=== PATIENT | female | born 1950 | race Caucasian/White ===

== ENCOUNTER 2023-03-10 12:53 | Outpatient (REF) | payer MEDICARE, MEDICAID, SELFPAY ==
[2023-03-10 17:13] LABS: HCT 36.7 % (36.0-46.0); HGB 11.7 g/dL (11.2-15.7); MCH 26.3 pg (27.0-33.0); MCHC 31.9 % (32.0-36.0); MCV 83 fL (80-95); MPV 11.5 fL (8.0-11.0); Platelet Count 215 10^3/uL (130-400); RBC 4.45 10^6/uL (3.93-5.22); RDW 14.3 % (11.7-14.6); RDW-SD 42.5 fL; WBC 6.26 10^3/uL (4.4-10.8)
[2023-03-10 18:03] LABS: Ferritin 10 ng/mL (8-252)
[2023-03-10 18:04] LABS: Iron 42 ug/dL (50-170); Total Iron Binding Capacity 456 ug/dL (250-450); Transferrin Sat 9 % (15-50)
[2023-03-10 18:06] LABS: Vitamin D 25 Total 28.3 ng/mL (30-100)
[2023-03-10 19:01] LABS: Vitamin B12 403 pg/mL (193-986)
[2023-03-12 09:06] LABS: Transferrin 388 mg/dL (201-352)
== END 2023-03-10 12:54 | disposition home or self-care (01) ==
LOC: NCHCN 12:53
PROVIDERS: PCP Internal Medicine; Visit Provider Internal Medicine
DX: D64.9 Anemia, unspecified (principal); M85.88 Other specified disorders of bone density and structure, other site
CPT/HCPCS: 82306; 85027; 82607; 82728; 83540; 83550; 84466

== ENCOUNTER 2023-09-06 16:50 | Outpatient (REF) | payer MEDICARE, MEDICAID, SELFPAY ==
[2023-09-06 22:18] LABS: HCT 34.6 % (36.0-46.0); MCH 26.1 pg (27.0-33.0); MCHC 31.8 % (32.0-36.0); MCV 82 fL (80-95); MPV 11.9 fL (8.0-11.0); Platelet Count 271 10^3/uL (130-400); RBC 4.22 10^6/uL (3.93-5.22); RDW 13.8 % (11.7-14.6); RDW-SD 41.1 fL; WBC 4.91 10^3/uL (4.4-10.8)
[2023-09-06 22:43] LABS: Hemoglobin A1C 6.3 % (<5.7)
[2023-09-06 22:47] LABS: Ferritin 11 ng/mL (8-252)
[2023-09-06 23:19] LABS: Vitamin D 25 Total 18.5 ng/mL (30-100)
== END 2023-09-06 16:51 | disposition home or self-care (01) ==
LOC: NCHCN 16:50
PROVIDERS: PCP Internal Medicine; Visit Provider Internal Medicine
DX: R73.03 Prediabetes (principal); D50.0 Iron deficiency anemia secondary to blood loss (chronic); E55.9 Vitamin D deficiency, unspecified
CPT/HCPCS: 82306; 85027; 82728; 83036

== ENCOUNTER 2023-12-22 13:40 | Outpatient (REF) | payer MEDICARE, MEDICAID, SELFPAY ==
[2023-12-22 16:01] LABS: HCT 45.6 % (36.0-46.0); HGB 14.5 g/dL (11.2-15.7); MCH 26.1 pg (27.0-33.0); MCHC 31.8 % (32.0-36.0); MCV 82 fL (80-95); MPV 11.1 fL (8.0-11.0); Platelet Count 229 10^3/uL (130-400); RBC 5.55 10^6/uL (3.93-5.22); RDW 15.6 % (11.7-14.6); RDW-SD 46.4 fL; WBC 6.07 10^3/uL (4.4-10.8)
[2023-12-22 16:51] LABS: Ferritin 27 ng/mL (8-252); Hemoglobin A1C 6.4 % (<5.7)
== END 2023-12-22 13:41 | disposition home or self-care (01) ==
LOC: NCHCN 13:40
PROVIDERS: PCP Internal Medicine; Visit Provider Internal Medicine
DX: D50.0 Iron deficiency anemia secondary to blood loss (chronic); E55.9 Vitamin D deficiency, unspecified
CPT/HCPCS: 82306; 85027; 82728; 83036

== ENCOUNTER 2024-06-21 11:50 | Outpatient (REF) | payer MEDICARE, MEDICAID, SELFPAY ==
[2024-06-21 14:48] LABS: HCT 38.2 % (36.0-46.0); HGB 11.9 g/dL (11.2-15.7); MCH 24.9 pg (27.0-33.0); MCHC 31.2 % (32.0-36.0); MCV 80 fL (80-95); MPV 11.6 fL (8.0-11.0); Platelet Count 295 10^3/uL (130-400); RBC 4.78 10^6/uL (3.93-5.22); RDW 15.5 % (11.7-14.6); RDW-SD 44.3 fL; WBC 8.51 10^3/uL (4.4-10.8)
[2024-06-21 15:09] LABS: Iron 56 ug/dL (50-170); Total Iron Binding Capacity 540 ug/dL (250-450); Transferrin Sat 10 % (15-50)
[2024-06-21 15:23] LABS: Anion Gap 9.1 mmol/L (3-11); BUN 18 mg/dL (7-18); CO2 29.9 mmol/L (21.0-32.0); CREATININE 0.9 mg/dL (0.55-1.02); Calcium 9.9 mg/dL (8.5-10.1); Chloride 101 mmol/L (98-107); Estimated GFR 67.92 (mL/min/1.73m2); Ferritin 11 ng/mL (8-252); Glucose 255 mg/dL (74-106); Potassium 4.5 mmol/L (3.5-5.1); Sodium 140 mmol/L (136-145); Vitamin D 25 Total 26.5 ng/mL (30-100)
== END 2024-06-21 11:51 | disposition home or self-care (01) ==
LOC: NCHCN 11:50
PROVIDERS: PCP Internal Medicine; Visit Provider Internal Medicine
DX: D50.0 Iron deficiency anemia secondary to blood loss (chronic) (principal); E55.9 Vitamin D deficiency, unspecified
CPT/HCPCS: 80048; 82306; 85027; 82728; 83540; 83550

== ENCOUNTER 2024-09-22 12:44 | Outpatient (REF) | payer MEDICARE, MEDICAID, SELFPAY ==
[2024-09-22 14:32] LABS: HCT 38.1 % (36.0-46.0); HGB 12.7 g/dL (11.2-15.7); MCH 27.1 pg (27.0-33.0); MCHC 33.3 % (32.0-36.0); MCV 81 fL (80-95); MPV 11.3 fL (8.0-11.0); Platelet Count 235 10^3/uL (130-400); RBC 4.69 10^6/uL (3.93-5.22); RDW 16.2 % (11.7-14.6); RDW-SD 47.7 fL; WBC 5.47 10^3/uL (4.4-10.8)
[2024-09-22 15:03] LABS: Ferritin 35 ng/mL (8-252); Vitamin D 25 Total 26 ng/mL (30-100)
[2024-09-22 16:18] LABS: COMMENT (LAB VIEW ONLY) 126.76 mg/dL; Microalb ug/mg Crea 46.9 ug/mg Cr
== END 2024-09-22 12:45 | disposition home or self-care (01) ==
LOC: NCHCN 12:44
PROVIDERS: PCP Internal Medicine; Visit Provider Internal Medicine
DX: D50.0 Iron deficiency anemia secondary to blood loss (chronic) (principal); E55.9 Vitamin D deficiency, unspecified
CPT/HCPCS: 82306; 85027; 82043; 82570; 82728

== ENCOUNTER 2025-04-19 15:13 | Outpatient (REF) | payer MEDICARE, MEDICAID, SELFPAY ==
[2025-04-19 21:02] LABS: HCT 33.8 % (36.0-46.0); HGB 10.6 g/dL (11.2-15.7); MCH 24.7 pg (27.0-33.0); MCHC 31.4 % (32.0-36.0); MCV 79 fL (80-95); MPV 11.0 fL (8.0-11.0); Platelet Count 271 10^3/uL (130-400); RBC 4.29 10^6/uL (3.93-5.22); RDW 14.7 % (11.7-14.6); RDW-SD 42.1 fL; WBC 5.86 10^3/uL (4.4-10.8)
[2025-04-19 21:18] LABS: Iron 32 ug/dL (50-170); Total Iron Binding Capacity 536 ug/dL (250-450); Transferrin Sat 6 % (15-50)
[2025-04-19 21:21] LABS: Hemoglobin A1C 6.1 % (<5.7)
[2025-04-19 21:44] LABS: ALT 26 U/L (14-59); AST 24 U/L (15-37); Albumin 3.9 g/dL (3.4-5.0); Alkaline Phosphatase 79 U/L (46-116); Anion Gap 9.1 mmol/L (3-11); BUN 13 mg/dL (7-18); Bilirubin, Total 0.9 mg/dL (0.2-1.0); CO2 27.9 mmol/L (21.0-32.0); Calcium 8.7 mg/dL (8.5-10.1); Calculated LDL 85 mg/dL (<100); Chloride 103 mmol/L (98-107); Cholesterol 164 mg/dL (<200); Estimated GFR 94.72 (mL/min/1.73m2); Ferritin 6 ng/mL (8-252); Glucose 109 mg/dL (74-106); HDL Cholesterol 56 mg/dL (>or=50); Potassium 3.6 mmol/L (3.5-5.1); Sodium 140 mmol/L (136-145); Total Protein 7.3 g/dL (6.4-8.2); Triglyceride 116 mg/dL (<150); Vitamin D 25 Total 36 ng/mL (30-100)
== END 2025-04-19 15:14 | disposition home or self-care (01) ==
LOC: NCHCN 15:13
PROVIDERS: PCP Internal Medicine; Visit Provider Internal Medicine
DX: D50.0 Iron deficiency anemia secondary to blood loss (chronic) (principal); E11.9 Type 2 diabetes mellitus without complications; E55.9 Vitamin D deficiency, unspecified
CPT/HCPCS: 80053; 80061; 82306; 85027; 82728; 83036; 83540; 83550